=== PATIENT | female | born 1965 | race Native Hawaiian/Other Pacific Islander ===

== ENCOUNTER 2020-03-12 18:31 | Emergency (ER) | payer OTHER ==
[~2020-03-12] VITALS: Ht 154.9 cm; Wt 108.4 kg
[2020-03-12 18:38] VITALS: TEMP 99.8
[2020-03-12] MEDS ORDERED: LISI10TA11 PO (18:51)
[2020-03-12] MEDS ORDERED: HYDR25TA60 PO (18:51)
[2020-03-12] MEDS ORDERED: CELEXA10 MG PO (18:52)
[2020-03-12 19:28] LABS: PLATELET COUNT 292 K/uL (152-353)
[2020-03-12 19:32] LABS: POTASSIUM 3.4 mmol/L (3.6-5.2)
[2020-03-12 20:06] VITALS: BP 154/67
== END 2020-03-12 20:06 | disposition home or self-care (01) ==
LOC: ED 18:31
PROVIDERS: Hospitalist
DX: N30.80 Other cystitis without hematuria (principal); R10.84 Generalized abdominal pain
CPT/HCPCS: 36415; 80053; 81000; 83690; 85027; 96360; 96365; 96375; 99284; J0696; J1170; J1885; J2405

== ENCOUNTER 2020-04-12 19:17 | Emergency (ER) | payer OTHER ==
[~2020-04-12] VITALS: Ht 154.9 cm; Wt 90.7 kg
[~2020-04-12 19:17] MED LIST: CELEXA10 MG PO; HYDR25TA60 PO; LISI10TA11 PO
[2020-04-12 20:09] LABS: PLATELET COUNT 274 K/uL (152-353)
[2020-04-12 23:20] VITALS: BP 172/80; TEMP 98.4
== END 2020-04-12 23:20 | disposition home or self-care (01) ==
LOC: ED 19:17
PROVIDERS: Hospitalist
DX: N13.2 Hydronephrosis with renal and ureteral calculous obstruction (principal)
CPT/HCPCS: 36415; 80053; 81000; 82150; 83690; 85027; 96360; 96365; 96375; 99284; J1170; J1885; J1956; J2405; Q9963